=== PATIENT | female | born 2000 | race Hispanic/Latino ===

== ENCOUNTER 2023-10-03 16:03 | Emergency (ER) | payer OTHER ==
[~2023-10-03] VITALS: Ht 157.5 cm; Wt 61.2 kg
[2023-10-03] MEDS ORDERED: KETO10TA2 PO (18:20)
[2023-10-03 19:08] VITALS: BP 115/77; PULSE 85; RESP 20; O2SAT 99
== END 2023-10-03 19:09 | disposition home or self-care (01) ==
LOC: EDH 16:03
DX: S93.402A Sprain of unspecified ligament of left ankle, initial encounter (principal); J45.909 Unspecified asthma, uncomplicated; Z98.890 Other specified postprocedural states; X50.1XXA Overexertion from prolonged static or awkward postures, initial encounter; Y93.89 Activity, other specified; Y92.89 Other specified places as the place of occurrence of the external cause; Y99.8 Other external cause status
CPT/HCPCS: 73610